=== PATIENT | female | born 1975 | race Caucasian/White ===

== ENCOUNTER 2021-10-19 06:31 | Emergency (ER) | payer MEDICAID ==
[~2021-10-19] VITALS: Ht 167.6 cm; Wt 145.1 kg
[2021-10-19 06:40] VITALS: BP_SYST 122
--- NOTE | 2021-10-19 07:05 | NUR ---
Dr. Jackson to triage to assess.
--- NOTE | 2021-10-19 07:13 | NUR ---
Pt to bed 8 for evaluation. Report given to ILYA Enamorado who will assume care.
[2021-10-19] MEDS ORDERED: HYDROmorphone 1 MG/ML INJ. CARTRIDGE IVP ONE (07:15)
[2021-10-19] MEDS ORDERED: LIDOCAINE/EPI 1% 1:100000 20 ML VIAL INJ ONE (07:15)
--- NOTE | 2021-10-19 07:15 | NUR ---
patient [id number] from home c/o painful abcess that has been growing to her right groin. stated she has had it for about 3 days. noticing it growing and getting more painful.
--- NOTE | 2021-10-19 08:10 | NUR ---
md hays at bedside to perform I&D.
[2021-10-19] MEDS ORDERED: KETOROLAC TROMETHAMINE 30 MG VIAL IVP ONE (08:30)
[2021-10-19] MEDS ORDERED: cefTRIAXone 1 GM IVPB PREMIX 50 ML IV ONE (08:30)
[2021-10-19] MEDS ORDERED: NAPR-1172 PO (10:13)
[2021-10-19] MEDS ORDERED: CEPH-548 PO (10:13)
[2021-10-19 11:08] VITALS: BP_SYST 122
--- NOTE | 2021-10-19 11:10 | NUR ---
Patient given written and verbal discharge instructions and verbalizes understanding. DR LEON AUGUSTE MD discussed with patient the results and treatment provided. Patient in stable condition. ID arm band removed. IV catheter removed intact and dressing applied, no active bleeding. Rx of KEFLEX AND NAPROXEN given. Patient educated on pain management and to follow up with PMD. Pain Scale 2/10. Opportunity for questions provided and answered. Medication side effect fact sheet provided.
== END 2021-10-19 11:10 | disposition home or self-care (01) ==
LOC: SED 06:31
DX: N75.1 Abscess of Bartholin's gland (principal); J45.909 Unspecified asthma, uncomplicated
CPT/HCPCS: 36415; 56405; 87040; 96372; 96374; 96375; 99284; J0696; J1170; J1885

== ENCOUNTER 2023-03-14 19:37 | Emergency (ER) | payer BC, MEDICAID ==
[~2023-03-14] VITALS: Ht 170.2 cm; Wt 149.7 kg
[~2023-03-14 19:37] MED LIST: CEPH-548 PO; FERR236T3 PO; NAPR-1172 PO
[2023-03-14 20:04] VITALS: BP_SYST 152; PULSE 78; RESP 22; TEMP 97.7; O2SAT 99
[2023-03-14 22:14] LABS: BASOPHILS % (AUTO) 0.5 % (0.0-2.0); EOSINOPHILS # (AUTO) 0.2 K/uL (0.0-0.4); EOSINOPHILS % (AUTO) 1.9 % (0.0-4.0); HEMATOCRIT 37.2 % (36-48); HEMOGLOBIN 11.9 g/dL (12.0-16.0); LYMPHOCYTES # (AUTO) 2.4 K/uL (1.0-5.5); LYMPHOCYTES % (AUTO) 25.5 % (20.5-51.5); MEAN CORPUSCULAR HEMOGLOBIN 27 pg (27-31); MEAN CORPUSCULAR HGB CONC 32 % (32-36); MEAN CORPUSCULAR VOLUME 84 fL (79.0-98.0); MONOCYTES # (AUTO) 0.5 K/uL (0.0-1.0); MONOCYTES % (AUTO) 5.1 % (1.7-9.3); NEUTROPHILS # (AUTO) 6.3 K/uL (1.8-7.7); PLATELET COUNT (AUTO) 232 K/uL (130-430); RED BLOOD CELL COUNT(AUTO) 4.42 MIL/uL (4.2-6.2); RED CELL DISTRIBUTION WIDTH 15.6 % (9.0-15.0); WHITE BLOOD COUNT (AUTO) 9.5 K/uL (4.8-10.8)
[2023-03-14 22:19] LABS: ANION GAP 8 (5-15); CALCIUM 9.2 mg/dL (8.4-11.0); CARBON DIOXIDE 26 mmol/L (23-29); CHLORIDE 103 mmol/L (98-107); CREATININE 0.73 mg/dL (0.55-1.30); GFR AFRICAN AMERICAN 111 mL/min (>90); GLUCOSE 129 mg/dL (74-106); POTASSIUM 3.8 mmol/L (3.5-5.1); SODIUM SERUM 137 mmol/L (136-145); UREA NITROGEN, BLOOD 14 mg/dL (8-21)
[2023-03-14 22:27] LABS: ALANINE AMINOTRANSFERASE 46 U/L (12-78); ALBUMIN 3.2 g/dL (3.4-4.8); ASPARTATE AMINOTRANSFERASE 33 U/L (10-37); TOTAL BILIRUBIN 0.2 mg/dL (0.0-1.0); TOTAL PROTEIN, SERUM 6.7 g/dL (6.4-8.3)
[2023-03-14 22:29] LABS: GFR NON AFRICAN-AMERICAN 92 mL/min (>90)
[2023-03-14 23:39] LABS: BILIRUBIN,URINE NEGATIVE (NEGATIVE); CLARITY/URINE Clear (CLEAR); COLOR,URINE YELLOW (YELLOW); GLUCOSE,URINE NEGATIVE (NEGATIVE); NITRITE, URINE NEGATIVE (NEGATIVE); PH,URINE 6.5 (5.0-8.0); PROTEIN URINE 1+ (NEGATIVE); UROBILINOGEN,URINE 0.2 (0.2-1.0)
[2023-03-14 23:53] LABS: BLOOD, URINE TRACE (NEGATIVE); KETONES,URINE NEGATIVE (NEGATIVE); LEUKOCYTE ESTERASE ,URINE NEGATIVE (NEGATIVE)
[2023-03-15 00:18] LABS: BACTERIA,URINE RARE /HPF (None Seen)
[2023-03-15] MEDS ORDERED: NACL 0.9% 1,000 ML IV ONE (01:45)
[2023-03-15] MEDS ORDERED: KETOROLAC TROMETHAMINE 15 MG VIAL IVP ONE (01:45)
[2023-03-15 02:25] VITALS: BP_SYST 146; PULSE 78; RESP 18; O2SAT 98
[2023-03-15] MEDS ORDERED: methocarbamoL 500 MG TABLET PO ONE (03:00)
[2023-03-15] MEDS ORDERED: IBUPROFEN 600 MG TABLET PO ONE (03:00)
[2023-03-15] MEDS ORDERED: LIDOCAINE PATCH 5% 1 EA TP ONE (03:00)
[2023-03-15] MEDS ORDERED: IBUP-1969 PO (03:14)
[2023-03-15] MEDS ORDERED: METH-634 PO (03:14)
[2023-03-15] MEDS ORDERED: CEPH-548 PO (03:14)
== END 2023-03-15 03:43 | disposition home or self-care (01) ==
LOC: SED 19:37
DX: N30.90 Cystitis, unspecified without hematuria (principal); R07.89 Other chest pain; R10.12 Left upper quadrant pain; M54.50 Low back pain, unspecified; J45.909 Unspecified asthma, uncomplicated; Z79.899 Other long term (current) drug therapy
CPT/HCPCS: 99285; 74176; 71045; 80053; 85025; 84484; 36415; 93005; 76376; 81025; 81003; 81000; J1885